=== PATIENT | female | born 1950 | race Hispanic/Latino ===

== ENCOUNTER 2025-05-06 12:27 | Emergency (ER) | payer MEDICARE, SELFPAY ==
[~2025-05-06] VITALS: Ht 157.5 cm; Wt 92.2 kg
[2025-05-06] MEDS ORDERED: HYDR-3363 PO (12:43)
[2025-05-06] MEDS ORDERED: SUPECAP7 PO (12:43)
[2025-05-06] MEDS ORDERED: NORV5TAB PO (12:43)
[2025-05-06] MEDS ORDERED: ELIQ2.5T PO (12:43)
[2025-05-06] MEDS ORDERED: ROSU20TA86 PO (12:43)
[2025-05-06] MEDS ORDERED: VITA1CAP4 PO (12:43)
[2025-05-06 13:27] LABS: BASO # 0.0 10^3/uL (0.0-0.2); BASO % 0.6 % (0.0-1.0); EOS # 0.1 10^3/uL (0.0-0.5); EOS % 1.5 % (0.0-3.0); LYMPH # 2.8 10^3/uL (1.5-5.0); LYMPH % 41.2 % (24.0-44.0); MONO # 0.7 10^3/uL (0.0-0.8); MONO % 9.4 % (2.0-8.0); NEUTROPHILS # 3.2 10^3/uL (1.5-8.5); NEUTROPHILS % 47.0 % (36.0-66.0); PLATELET COUNT, AUTOMATED 223 10^3/uL (150-450)
[2025-05-06 13:56] LABS: ALT/SGPT 21 U/L (7.0-40); AST/SGOT 29 U/L (<34); CALCIUM LEVEL 9.4 MG/DL (8.3-10.6); CARBON DIOXIDE LEVEL 25 MMOL/L (20-31); CHLORIDE LEVEL 108 MMOL/L (98-107); CK-MB VALUE MASS 1.3 NG/ML (<3.6); CREATININE FOR GFR 0.69 MG/DL (0.55-1.30); GLOMERULAR FILTRATION RATE > 90.0 (>39); POTASSIUM SERUM 4.3 MMOL/L (3.5-5.1); SODIUM LEVEL 142 MMOL/L (136-145)
[2025-05-06 13:58] LABS: FREE T4 1.16 NG/DL (0.89-1.76)
[2025-05-06 14:00] LABS: CPK CREATINE PHOSPHOKINASE 98 U/L (34-145); MB/CK RELATIVE INDEX 1.32 (< OR =4)
[2025-05-06] MEDS: ACETAMINOPHEN *IV* 1,000 MG in IV 1 EA IV ONE (14:28)
[2025-05-06] MEDS ORDERED: ISOVUE-370 76% 100 ML VIAL As Ordered ONE (14:48)
[2025-05-06 14:59] LABS: CK-MB VALUE MASS 1.7 NG/ML (<3.6)
[2025-05-06 15:01] LABS: CPK CREATINE PHOSPHOKINASE 95.0 U/L (34-145); MB/CK RELATIVE INDEX 1.78 (< OR =4)
[2025-05-06 16:15] VITALS: BP 137/65; O2SAT 98
[2025-05-06 16:42] VITALS: TEMP 96.1
== END 2025-05-06 16:43 | disposition home or self-care (01) ==
LOC: M ED 12:27
DX: R07.9 Chest pain, unspecified (principal); I49.1 Atrial premature depolarization; I10 Essential (primary) hypertension; Z79.01 Long term (current) use of anticoagulants; Z86.79 Personal history of other diseases of the circulatory system; Z79.899 Other long term (current) drug therapy
CPT/HCPCS: 71045; 71275; 80048; 80076; 82550; 82553; 83690; 83880; 84439; 84443; 84484; 85025; 93005; 96365; 99285; J0131; Q9967